=== PATIENT | male | born 1990 | race African-American/Black ===

== ENCOUNTER 2021-02-07 15:19 | Emergency (ER) | payer MEDICAID ==
[~2021-02-07] VITALS: Ht 172.7 cm; Wt 141.0 kg
[2021-02-07] MEDS ORDERED: CARV25TA47 PO (15:26)
[2021-02-07] MEDS ORDERED: TETANUS, DIPHTHERIA, PERTUSSIS VAC/PF 0.5ML (>7YR OLD) IM ONE (16:00)
[2021-02-07] MEDS ORDERED: ONDANSETRON HCL 4MG/2ML INJ IV STA (16:39)
[2021-02-07] MEDS ORDERED: MORPHINE SULFATE 4 MG/ML CPJ (NOT FOR IM USE) IV STA (16:39)
[2021-02-07 16:50] LABS: CHLORIDE 105 mEq/L (98-107)
[2021-02-07 16:52] LABS: PROTHROMBIN TIME 10.9 sec (9.6-11.0)
[2021-02-07 16:55] LABS: BASOPHILS % 0.9 % (0.0-2.0); EOSINOPHILS % 4.1 % (0.0-5.0); HEMATOCRIT. 46.4 % (42.0-52.0); HEMOGLOBIN. 15.5 g/dL (14.0-18.0); LYMPHOCYTES % 33.3 % (20.0-50.0); MEAN CORPUSCULAR HEMOGLOBIN 28.2 pg (28.0-32.0); MEAN CORPUSCULAR VOLUME 84.5 fL (80.0-94.0); MEAN PLATELET VOLUME 9.4 fl (7.4-10.4); MONOCYTES % 5.7 % (2.0-8.0); PLATELET 297 x1000/uL (130-400); RED BLOOD CELL COUNT 5.49 mill/uL (4.7-6.1); RED CELL DISTRIBUTION WIDTH 14.6 % (11.6-14.6)
[2021-02-07] MEDS ORDERED: CLONIDINE 0.2MG TABLET PO ONE (19:45)
[2021-02-07 20:00] VITALS: BP 116/112
[2021-02-07 20:05] LABS: CLARITY URINE CLEAR (CLEAR); COLOR URINE YELLOW (YELLOW); KETONES URINE NEGATIVE (NEGATIVE); LEUKOCYTE ESTERASE URINE NEGATIVE (NEGATIVE); NITRITE URINE NEGATIVE (NEGATIVE); OCCULT BLOOD URINE NEGATIVE (NEGATIVE); PROTEIN URINE 2+ (NEGATIVE); SPECIFIC GRAVITY URINE 1.025 (1.005-1.030)
== END 2021-02-07 20:10 | disposition home or self-care (01) ==
LOC: ER 15:19
DX: S01.81XA Laceration without foreign body of other part of head, initial encounter (principal); I50.9 Heart failure, unspecified; V49.49XA Driver injured in collision with other motor vehicles in traffic accident, initial encounter; Y93.89 Activity, other specified; Y92.89 Other specified places as the place of occurrence of the external cause; Y99.8 Other external cause status
CPT/HCPCS: 36415; 70450; 72125; 80053; 81003; 85025; 85610; 90471; 90715; 93005; 96374; 96375; 99285; J2270; J2405